=== PATIENT | female | born 1970 | race Caucasian/White ===

== ENCOUNTER 2016-05-02 19:07 | Emergency (ER) | payer OTHER ==
[~2016-05-02] VITALS: Ht 157.5 cm; Wt 74.8 kg
--- NOTE | ~2016-05-02 | EKG ---
[address] [place] [address] ELECTROCARDIOGRAM REPORT Name: CHARLA AVINA Room #: DEP Rosalio#: [id number] Admission: 05/02/16 Attend Phys: Discharge: 05/02/16 Date of : 68 Report #: [id number] THIS REPORT FOR: //name// [facility] ED Test Date: 2016-05-02 Test Time: 19:12:10 Pat Name: CHARLA KAILYN Department: Room: Gender: F Ignition Specialist: heather redding : 1970 Requested By: Suresh Alonso Order Number: [id number] MD: Alex House Measurements Intervals [place] Rate: 70 P: 59 IL: 170 QRS: -37 QRSD: 95 T: 22 QT: 393 QTc: 425 Interpretive Statements Sinus rhythm Poor R wave progression Left axis deviation No previous ECG available for comparison Electronically Signed On 05-03-2016 7:52:29 [employer]INTER [employer] by Alex House [email or web address] <ELECTRONICALLY SIGNED> By: Alex House MD, [facility] 05/03/16 [id number] Alex House MD, FACC /EPI
[~2016-05-02 19:07] MED LIST: PHENERGAN-CODE120 ML PO
[2016-05-02 20:06] LABS: ABSOLUTE NEUTROPHILS 3.1 thou/uL (1.4-8.2); BASOPHILS 0.4 % (0.0-2.0); EOSINOPHILS 1.1 % (0.0-3.0); HEMATOCRIT 38.3 % (37.0-47.0); HEMOGLOBIN 13.3 gm/dL (12.0-15.0); MCH 32.6 pg (26.0-34.0); MCHC 34.7 % (28.0-37.0); MCV 93.9 fL (80.0-100.0); MONOCYTES 6.3 % (1.0-8.0); PLATELET COUNT 102 thou/uL (150-400); POLYS 53.2 % (36.0-66.0); RBC 4.08 mil/uL (4.20-5.00); RDW 13.2 % (10.5-14.5); WBC 5.8 thou/uL (4.0-11.0)
[2016-05-02 20:08] LABS: MANUAL DIFF NO
[2016-05-02 20:28] LABS: ANION GAP 8 mmol/L (7-16); BUN 16 mg/dL (7-18); CHLORIDE 104 mmol/L (98-107); CO2 28 mmol/L (21-32); CREATININE 0.4 mg/dL (0.6-1.3); GLUCOSE 102 mg/dL (70-99); NT-PRO BRAIN NAT PEPTIDE 23 pg/mL (<300); POTASSIUM 4.2 mmol/L (3.5-5.1); SODIUM 140 mmol/L (136-145); TROPONIN-I < 0.04 ng/mL (<0.04-0.07)
[2016-05-02 21:27] VITALS: BP 115/65
== END 2016-05-02 21:29 | disposition home or self-care (01) ==
LOC: ER 19:07
PROVIDERS: Nurse Practitioner
DX: R07.89 Other chest pain (principal); R53.1 Weakness; F10.99 Alcohol use, unspecified with unspecified alcohol-induced disorder; F12.90 Cannabis use, unspecified, uncomplicated

== ENCOUNTER 2019-09-10 21:54 | Emergency (ER) | payer OTHER ==
[~2019-09-10] VITALS: Ht 157.5 cm; Wt 72.6 kg
[2019-09-10] MEDS ORDERED: ZOLOFT100 MG PO (22:04)
[2019-09-10] MEDS ORDERED: TRI-LO-ESTARYL1 EACH PO (22:17)
[2019-09-10 23:15] VITALS: BP 123/72
== END 2019-09-10 23:32 | disposition home or self-care (01) ==
LOC: ER 21:54
DX: S01.81XA Laceration without foreign body of other part of head, initial encounter (principal); W22.8XXA Striking against or struck by other objects, initial encounter; Y93.89 Activity, other specified; Y92.89 Other specified places as the place of occurrence of the external cause; Y99.8 Other external cause status